=== PATIENT | female | born 1950 | race Caucasian/White ===

== ENCOUNTER 2017-01-08 12:34 | Inpatient (IN) | payer MEDICARE, MEDICAID ==
[~2017-01-08] VITALS: Ht 160 cm; Wt 65.3 kg
--- NOTE | 2017-01-08 12:50 | NUR ---
Priscillater brent and is at the bedside for 1:1 observation.
[2017-01-08] MEDS ORDERED: NIFE30TA2 PO (13:16)
[2017-01-08] MEDS ORDERED: ALPR1TAB7 PO (13:16)
[2017-01-08] MEDS ORDERED: ASCO500T10 PO (13:16)
[2017-01-08] MEDS ORDERED: FLUT9.9S NS (13:16)
[2017-01-08] MEDS ORDERED: DOCU-25 PO (13:16)
[2017-01-08] MEDS ORDERED: ALBU2.5V38 IH (13:16)
[2017-01-08] MEDS ORDERED: CYAN10006 IM (13:16)
[2017-01-08] MEDS ORDERED: BUDE10.2 IH (13:16)
[2017-01-08] MEDS ORDERED: DOCU240C26 PO (13:16)
[2017-01-08] MEDS ORDERED: PANT40TA4 PO (13:16)
[2017-01-08] MEDS ORDERED: POLY17PO4 PO (13:16)
[2017-01-08] MEDS ORDERED: OXYC-128 PO (13:16)
[2017-01-08] MEDS ORDERED: ZINC220T PO (13:16)
[2017-01-08] MEDS ORDERED: CRAN3875 PO (13:16)
[2017-01-08] MEDS ORDERED: ERGO500047 PO (13:16)
[2017-01-08] MEDS ORDERED: MAGN400O4 PO (13:16)
[2017-01-08] MEDS ORDERED: FERR-58 PO (13:16)
[2017-01-08] MEDS ORDERED: MECL-102 PO (13:16)
[2017-01-08] MEDS ORDERED: NITR0.4T6 SL (13:16)
[2017-01-08] MEDS ORDERED: OXYC-162 PO (13:16)
[2017-01-08] MEDS ORDERED: ACET325T53 PO (13:16)
[2017-01-08] MEDS ORDERED: ZOLP5TAB7 PO (13:16)
--- NOTE | 2017-01-08 13:30 | NUR ---
Pt ate lunch , remains cooperative. Pt ambulated to restroom with assist but was unable to void for urine specimen.
[2017-01-08 14:22] LABS: CALCIUM 9.2 mg/dL (8.5-10.1); CARBON DIOXIDE 28 mmol/L (21-32); CHLORIDE 103 mmol/L (98-107); CREATININE 0.6 mg/dL (0.6-1.3); GFR 100 mL/min (>60); GLUCOSE 143 mg/dL (74-106); POTASSIUM 3.9 mmol/L (3.5-5.1); SODIUM SERUM 141 mmol/L (136-145); UREA NITROGEN, BLOOD 10 mg/dL (7-18)
[2017-01-08 14:23] LABS: BASOPHILS # (AUTO) 0.1 K/uL (0.0-0.2); BASOPHILS % (AUTO) 1.1 % (0.0-2.0); EOSINOPHILS # (AUTO) 0.1 K/uL (0.0-0.7); EOSINOPHILS % (AUTO) 1.5 % (0.0-7.0); HEMATOCRIT 38.6 % (37.0-47.0); HEMOGLOBIN 13.1 g/dL (12.0-16.0); LYMPHOCYTES # (AUTO) 1.6 K/uL (0.8-4.8); LYMPHOCYTES % (AUTO) 26.3 % (20.5-51.5); MEAN CORPUSCULAR HEMOGLOBIN 32.5 uug (27.0-31.0); MEAN CORPUSCULAR HGB CONC 34 g/dL (32.0-37.0); MEAN CORPUSCULAR VOLUME 95.8 fL (81.0-99.0); MONOCYTES # (AUTO) 0.4 K/uL (0.1-1.30); MONOCYTES % (AUTO) 6.6 % (0.0-11.0); NEUTROPHILS # (AUTO) 4.1 K/uL (1.8-8.9); NEUTROPHILS % (AUTO) 64.5 % (38.5-71.5); PLATELET COUNT (AUTO) 233 K/uL (150-450); RED BLOOD CELL COUNT(AUTO) 4.03 MIL/uL (4.20-5.40); WHITE BLOOD COUNT (AUTO) 6.3 K/uL (4.0-11.2)
[2017-01-08 14:27] LABS: TROPONIN I < 0.017 ng/mL (0.00-0.056)
[2017-01-08 14:31] LABS: ETHANOL < 3 MG/DL (0-0)
[2017-01-08 14:32] LABS: AMMONIA 20 umol/L (11-32)
[2017-01-08 14:34] LABS: THYROID STIMULATING HORMONE 5.965 mIU/mL (0.358-3.740)
[2017-01-08 14:42] LABS: ACETAMINOPHEN 2.5 ug/mL (10-30); ALANINE AMINOTRANSFERASE 64 U/L (14-59); ALBUMIN 4.1 g/dL (3.4-5.0); ALKALINE PHOSPHATASE 171 U/L (50-136); ASPARTATE AMINOTRANSFERASE 43 U/L (15-37); BILIRUBIN,DIRECT 0.1 mg/dL (0.0-0.2); BILIRUBIN,TOTAL 0.5 mg/dL (0.2-1.0); TOTAL PROTEIN, SERUM 7.9 g/dL (6.4-8.2)
[2017-01-08 14:46] LABS: LACTIC ACID 1.3 mmol/L (0.4-2.0)
--- NOTE | 2017-01-08 14:48 | NUR ---
Urine specimen obtained and sent to lab, sitter remains at bedside, pending admission to MHU post change of shift.
[2017-01-08 15:06] LABS: *BILIRUBIN,URIN NEGATIVE (NEGATIVE); *BLOOD, URINE NEGATIVE (NEGATIVE); *CLARITY,URINE CLEAR (CLEAR); *COLOR,URINE YELLOW (YELLOW); *KETONES,URINE NEGATIVE (NEGATIVE); *PROTEIN,URINE NEGATIVE (NEGATIVE); *UROBILINOGEN,URINE 0.2 E.U./dl (NORMAL); LEUKOCYTE ESTERASE ,URINE NEGATIVE (NEGATIVE); NITRITE, URINE NEGATIVE (NEGATIVE); PH,URINE 8.5 (5.0-8.0); UGLUCOSE NEGATIVE (NEGATIVE)
[2017-01-08 15:23] LABS: BACTERIA,URINE RARE /HPF (NONE SEEN); RBC,URINE 0-3 /HPF (0-3); SQUAMOUS EPITHELIAL CELL,UR FEW /HPF (NONE SEEN)
[2017-01-08] MEDS ORDERED: OXYCODONE/APAP 5-325 MG TABLET PO ONE (17:00)
[2017-01-08] MEDS ORDERED: OXYCODONE/APAP 5-325 MG TABLET ONE ×2 (17:06→22:28)
--- NOTE | 2017-01-08 19:49 | NUR ---
Pt. admitted to GPS, under care of Dr. Kuhn Belongs List completed
[2017-01-08 20:00] VITALS: BP 119/79
[2017-01-08] MEDS ORDERED: ACETAMINOPHEN 325 MG TABLET PO PRN (20:15)
[2017-01-08] MEDS ORDERED: MAG HYDROX/AL HYDROX/SIMETH 30 ML LIQUID UDC PO PRN (20:15)
[2017-01-08] MEDS ORDERED: NITROGLYCERIN 0.4 MG/TAB BOTTLE SL PRN (21:45)
[2017-01-08] MEDS ORDERED: MECLIZINE HCL 25 MG TABLET PO PRN (21:45)
[2017-01-08] MEDS: ZOLPIDEM 5 MG TABLET PO PRN (22:19)
[2017-01-08] MEDS: OXYCODONE/APAP 5-325 MG TABLET PO PRN (22:20)
[2017-01-08] MEDS ORDERED: ZOLPIDEM 5 MG TABLET ONE (22:24)
[2017-01-08] MEDS: LORAZEPAM 0.5 MG TABLET PO PRN (23:37)
[2017-01-08] MEDS ORDERED: LORAZEPAM 0.5 MG TABLET ONE (23:46)
[2017-01-09] MEDS: MAGNESIUM HYDROXIDE 30 ML LIQUID UDC PO PRN (02:42)
[2017-01-09] MEDS ORDERED: MAGNESIUM HYDROXIDE 30 ML LIQUID UDC ONE (02:50)
--- NOTE | 2017-01-09 03:49 | NUR ---
Received patient from ER on 5150 hold, see chart for details. Patient is a/0 x4, denies chest pain or shortness of breath. medications reviewed with patient. Saline lock in place, states she has been on IV antibiotics for UTI. Psych and Internal MD notified of patient arrival to unit, medication orders placed and carried out. Belongings done with patient, oriented to unit and plan of care. Needs attended to. Will monitor.
[2017-01-09] MEDS: OXYCODONE/APAP 5-325 MG TABLET PO PRN ×3 (04:12→16:39)
[2017-01-09] MEDS ORDERED: OXYCODONE/APAP 5-325 MG TABLET ONE (04:19)
[2017-01-09 07:30] VITALS: BP 125/90
[2017-01-09] MEDS: ZINC SULFATE 220 MG CAPSULE PO SCH (09:00)
[2017-01-09] MEDS: NIFEdipine XL 30 MG TABSR PO SCH (09:00)
[2017-01-09] MEDS: ASCORBIC ACID 500 MG TABLET PO SCH (09:01)
[2017-01-09] MEDS: FERROUS SULFATE 325 MG TABEC PO SCH (09:01)
[2017-01-09] MEDS: DOCUSATE SODIUM 100 MG CAPSULE PO SCH ×2 (09:01→16:39)
[2017-01-09] MEDS: MIRALAX 17 GM POWD.PACK PO SCH ×2 (09:04→16:39)
[2017-01-09] MEDS: PANTOPRAZOLE SODIUM 40 MG TABLET.DR PO SCH (10:31)
[2017-01-09] MEDS: LORAZEPAM 0.5 MG TABLET PO PRN ×2 (12:28→20:38)
[2017-01-09] MEDS: ALBUTEROL SULFATE 2.5 MG/3 ML NEBU IH PRN ×2 (14:02→20:07)
[2017-01-09 15:30] VITALS: BP 128/85
[2017-01-09 18:09] LABS: *BILIRUBIN,URIN NEGATIVE (NEGATIVE); *BLOOD, URINE 1+ (NEGATIVE); *CLARITY,URINE SLIGHTLY CLOUDY (CLEAR); *COLOR,URINE YELLOW (YELLOW); *KETONES,URINE NEGATIVE (NEGATIVE); *PROTEIN,URINE NEGATIVE (NEGATIVE); *UROBILINOGEN,URINE 0.2 E.U./dl (NORMAL); LEUKOCYTE ESTERASE ,URINE 3+ (NEGATIVE); NITRITE, URINE NEGATIVE (NEGATIVE); PH,URINE 7.5 (5.0-8.0); UGLUCOSE NEGATIVE (NEGATIVE)
[2017-01-09 18:29] LABS: BACTERIA,URINE FEW /HPF (NONE SEEN); SQUAMOUS EPITHELIAL CELL,UR FEW /HPF (NONE SEEN); WBC,URINE 20-50 /HPF (0-3)
[2017-01-09 19:45] VITALS: BP 131/80
[2017-01-09] MEDS: QUETIAPINE FUMARATE 25 MG TABLET PO SCH (20:37)
--- NOTE | 2017-01-09 20:40 | NUR ---
gps: patient c/o anxiety. ativan 0.5 mg po given per patient requested.
[2017-01-09] MEDS: FLUTICASONE PROP NASAL SPRAY 16 GM BOTTLE NS SCH (20:51)
--- NOTE | 2017-01-09 21:40 | NUR ---
GPS: PATIENT IS CALM NOW. PRN EFFECTIVE FOR ANXIETY.
[2017-01-10] MEDS: ZOLPIDEM 5 MG TABLET PO PRN (01:43)
--- NOTE | 2017-01-10 01:45 | NUR ---
GPS: PATIENT C/O INSOMNIA. AMBIEN 5 MG PO GIVEN.
[2017-01-10] MEDS: OXYCODONE/APAP 5-325 MG TABLET PO PRN ×4 (02:40→22:03)
--- NOTE | 2017-01-10 02:43 | NUR ---
GPS: PATIENT C/O PAIN. PERCOCET 5/325 MG 1 TAB PO GIVEN PER PATIENT REQUESTED.
--- NOTE | 2017-01-10 03:43 | NUR ---
GPS: PATIENT STATED I AM FEELING BETTER NOW. PRN EFFECTIVE FOR PAIN.
[2017-01-10] MEDS: PANTOPRAZOLE SODIUM 40 MG TABLET.DR PO SCH (06:29)
--- NOTE | 2017-01-10 06:46 | NUR ---
GPS: REMAIN CALM AND COOPERATIVE WITH MEDS AND CARE. PATIENT IS NEEDY.SLEPT 9:30 HRS THROUGH THE NIGHT.
--- NOTE | 2017-01-10 06:59 | NUR ---
GPS: PATIENT IS NPO TO DAY FOR CT SCAN WITHOUT CONTRAST.
[2017-01-10] MEDS ORDERED: BARIUM SULFATE 450 ML ORAL.SUSP ONE (07:16)
[2017-01-10 07:30] VITALS: BP 126/76
[2017-01-10] MEDS: ALBUTEROL SULFATE 2.5 MG/3 ML NEBU IH PRN ×3 (08:38→21:14)
--- NOTE | 2017-01-10 08:44 | NUR ---
Pt received on w/c at nurses station, making frequent excessive demands. Needy, manipulative, med-seeking, and demanding. Makes excessive demands and never appears to be satisfied. When limit setting provided, pt states "I'm gonna clarisse you guys." Stated her coffee was cold. It was not, but offered another cup of fresh hot coffee. Pt then went to another nurse and asked him for another cup of coffee because her cup was cold and nobody gave her another cup. Requires frequent redirection and limit setting. Continues to refuse to remove heplock on right arm. Refused scheduled CT because "my software project manager will do it on Tuesday." Initially refused CT scan with contrast because she states she is allergic to IV dye.
[2017-01-10] MEDS: DOCUSATE SODIUM 100 MG CAPSULE PO SCH ×2 (08:47→17:40)
[2017-01-10] MEDS: NIFEdipine XL 30 MG TABSR PO SCH (08:47)
[2017-01-10] MEDS: MIRALAX 17 GM POWD.PACK PO SCH ×2 (08:47→17:40)
[2017-01-10] MEDS: FERROUS SULFATE 325 MG TABEC PO SCH (08:47)
[2017-01-10] MEDS: ZINC SULFATE 220 MG CAPSULE PO SCH (08:47)
[2017-01-10] MEDS: ASCORBIC ACID 500 MG TABLET PO SCH (08:47)
[2017-01-10] MEDS: LORAZEPAM 0.5 MG TABLET PO PRN ×3 (09:04→23:02)
[2017-01-10] MEDS: FLUTICASONE PROP NASAL SPRAY 16 GM BOTTLE NS SCH ×2 (09:08→20:20)
--- NOTE | 2017-01-10 14:56 | NUR ---
Initial discharge instructions:Patient resides at [facility] [[address],[place],[address];[phone]].Per patient,she would like to return back the facility once discharged.Spoke with Franky [NADIA] in admissions who stated the patient may not return back.Per Franky,the pt has become disruptive to other residents and is a danger.Per Franky,the pt's MD is recommending a Psychiatric Locked SNF for the patient instead.Additionally,Benedicto from [facility] contacted this reported to confirm if the patient will be returning to SNF or her housing once discharged.SHA will speak with patient,brother,and MD regarding appropriate discharge plans.SW will form a safe and proper discharge.
[2017-01-10] MEDS: MAGNESIUM HYDROXIDE 30 ML LIQUID UDC PO PRN (15:26)
[2017-01-10 15:55] VITALS: BP 118/82
[2017-01-10] MEDS: SULFAMETH/TRIMETH 800/160 MG TABLET PO SCH (20:21)
[2017-01-10] MEDS: QUETIAPINE FUMARATE 25 MG TABLET PO SCH (20:35)
[2017-01-10 20:48] VITALS: BP 117/78
--- NOTE | 2017-01-10 22:00 | NUR ---
received to care, visible on unit, pleasant, but very focused on her medications, for pain and anxiety. compliant with medications and staff direction. no aggressive behavior noted. as of 2199, she remains awake, in bed. no distress noted. assisted as needed..
--- NOTE | 2017-01-10 23:02 | NUR ---
PRN precocet given at 2202, for lower back pain 05/19. as of 2301, she states good relief (01/17), but remains anxious, so PRN ativan was given at this time. remains in bed. will continue to monitor closely.
--- NOTE | 2017-01-10 23:58 | NUR ---
appears to be asleep. no distress noted.
[2017-01-11] MEDS: ZOLPIDEM 5 MG TABLET PO PRN ×2 (00:32→21:44)
--- NOTE | 2017-01-11 00:32 | NUR ---
pt is now awake. PRN yady was given for insomnia, and she went back to bed.
[2017-01-11] MEDS: QUETIAPINE FUMARATE 25 MG TABLET PO PRN ×2 (01:45→21:44)
--- NOTE | 2017-01-11 01:45 | NUR ---
PT IS AWAKE. C/O ANXIETY. PRN SEROQUEL WAS GIVEN, AND SHE WENT BACK TO BED.
[2017-01-11] MEDS: OXYCODONE/APAP 5-325 MG TABLET PO PRN ×3 (04:08→20:26)
--- NOTE | 2017-01-11 06:00 | NUR ---
slept 4 hours
[2017-01-11] MEDS: PANTOPRAZOLE SODIUM 40 MG TABLET.DR PO SCH (06:39)
[2017-01-11] MEDS: LORAZEPAM 0.5 MG TABLET PO PRN ×4 (06:57→20:31)
--- NOTE | 2017-01-11 06:57 | NUR ---
PRN ativan given for anxiety
[2017-01-11 07:30] VITALS: BP_SYST 110; BP_SYST 134; BP_DIAS 68; BP_DIAS 82
[2017-01-11] MEDS: ASCORBIC ACID 500 MG TABLET PO SCH (08:28)
[2017-01-11] MEDS: NIFEdipine XL 30 MG TABSR PO SCH (08:28)
[2017-01-11] MEDS: SULFAMETH/TRIMETH 800/160 MG TABLET PO SCH ×3 (08:28→21:00)
[2017-01-11] MEDS: FERROUS SULFATE 325 MG TABEC PO SCH (08:28)
[2017-01-11] MEDS: DOCUSATE SODIUM 100 MG CAPSULE PO SCH ×2 (08:28→16:53)
[2017-01-11] MEDS: ZINC SULFATE 220 MG CAPSULE PO SCH (08:28)
[2017-01-11] MEDS: MIRALAX 17 GM POWD.PACK PO SCH ×2 (08:29→16:52)
[2017-01-11] MEDS: FLUTICASONE PROP NASAL SPRAY 16 GM BOTTLE NS SCH ×2 (08:29→21:13)
[2017-01-11] MEDS: ALBUTEROL SULFATE 2.5 MG/3 ML NEBU IH PRN ×2 (12:03→20:08)
[2017-01-11] MEDS: MAGNESIUM HYDROXIDE 30 ML LIQUID UDC PO PRN (13:45)
[2017-01-11 16:54] VITALS: BP 109/71
[2017-01-11 20:00] VITALS: BP 108/74
[2017-01-11] MEDS: QUETIAPINE FUMARATE 25 MG TABLET PO SCH (20:09)
[2017-01-12] MEDS: OXYCODONE/APAP 5-325 MG TABLET PO PRN ×2 (02:39→09:31)
[2017-01-12] MEDS: LORAZEPAM 0.5 MG TABLET PO PRN ×2 (04:38→10:51)
[2017-01-12] MEDS: PANTOPRAZOLE SODIUM 40 MG TABLET.DR PO SCH (06:19)
[2017-01-12 07:30] VITALS: BP 102/61
[2017-01-12 09:00] VITALS: BP 102/61
[2017-01-12] MEDS: SULFAMETH/TRIMETH 800/160 MG TABLET PO SCH ×2 (09:00→09:37)
[2017-01-12] MEDS: NIFEdipine XL 30 MG TABSR PO SCH (09:00)
[2017-01-12] MEDS: MIRALAX 17 GM POWD.PACK PO SCH (09:00)
[2017-01-12] MEDS: DOCUSATE SODIUM 100 MG CAPSULE PO SCH (09:29)
[2017-01-12] MEDS: ASCORBIC ACID 500 MG TABLET PO SCH (09:29)
[2017-01-12] MEDS: FERROUS SULFATE 325 MG TABEC PO SCH (09:30)
[2017-01-12] MEDS: ZINC SULFATE 220 MG CAPSULE PO SCH (09:37)
[2017-01-12] MEDS: FLUTICASONE PROP NASAL SPRAY 16 GM BOTTLE NS SCH (09:39)
--- NOTE | 2017-01-12 11:02 | NUR ---
DC Note: The patient will be discharged today back to her apartment [[address], [place], [address]] via taxi at 1:00 pm. Patient will be provided with a taxi voucher. Spoke with Stacia the inbound sales manager for [facility] who stated the patient may return home today. Stacia stated she would open the door for the patient once she arrives. Patient is aware and agreeable with discharge plans. Patient will follow-up with (Psychiatrist) [[address], [place] [address]; ] and Dr. Jarad Perez (Strike Operations Officer) [[address], [place] [address]; ]. Patient was provided with a brief substance abuse intervention and referred to [facility] , [facility] , and [facility] . Addendum: 01/12/17 at 1119 by HESHAM DALTON Patient refused a new SNF/Rehab placement [[facility]]. Addendum: 01/12/17 at 1353 by HESHAM DALTON Patient's brother, Max Russo [phone] was informed and is aware/agreeable with discharge plans.
[2017-01-12] MEDS ORDERED: ERGOCALCIFEROL 50,000 UNIT CAPSULE PO SCH (12:00)
--- NOTE | 2017-01-12 12:25 | NUR ---
WEEKLY MEETING; tolerating current diet(cardiac diet),and eating 100% of meals Anthropometry:Ht is 63",current wt is 144 lb,BMI 25.5-OVERWEIGHT weight discrepancy noticed 6lb wt loss in 4 days 4% significant ,nursing/winter intern recheck weight. labs:CHOLESTEROL-212,LDL-114 ON CARDIAC DIET NO NUTRITION DIAGNOSIS AT THIS TIME NO INTERVENTION AT THIS TIME Addendum: 01/12/17 at [address] Amended: Links added.
[2017-01-12] MEDS ORDERED: ALBUTEROL SULFATE 2.5 MG/3 ML NEBU NEB PRN (13:15)
[2017-01-12] MEDS ORDERED: ALBUTEROL SULFATE 8 GM HFA.AER.AD IH PRN (13:15)
--- NOTE | 2017-01-12 13:33 | NUR ---
GPS/RN- Spoke with [facility] medical group, Adia Gill N.P. and Dr Ellington, patient to follow up with her own PMD for Oxycodone PRN medication. patient informed.
--- NOTE | 2017-01-12 14:11 | NUR ---
Assistant Dean: SHA spoke with Leanne in Assistant Dean at [facility] [phone] regarding patient's belongings. Leanne was informed that the patient is planning to personally olive picker her items later today. Patient has refused for her items to be delivered to her apartment and will be picking them up personally. Per Leanne, she is aware and requested the patient call before she arrives in order to organize her items.
--- NOTE | 2017-01-12 14:31 | NUR ---
GPS/RN- PATIENT REFUSED TO SIGN FIREARMS FORM, VERBALIZING " I DID NOTHING WRONG". PATIENT REDIRECTED TO 72 HOUR HOLD INFORMATION, ARGUMENTATIVE, REFUSED TO SIGN.
--- NOTE | 2017-01-12 18:28 | NUR ---
PATIENT D/C D HOME WITH INSTRUCTIONS OF DISCHARGE PLAN AND APPOINTMENT SCHEDLE TO CALL FOR APPOINTMENT WITH IN 1 WEEK. PATIENT LEFT WITH ALL BELONGINGS AND MEDICATION PRESCRIPTIONS ABD EDUCATION OF HER DISEASE. PT LEFT IN NO ACUTE DISTRESS VIA CAB WITH VOUCHER , ESCORTED BY FEMALE STAFF TO LOBBY.
[2017-01-12] MEDS ORDERED: QUETIAPINE FUMARATE 25 MG TABLET PO SCH ×2 (21:00)
[2017-01-13] MEDS ORDERED: QUETIAPINE FUMARATE 25 MG TABLET PO SCH (09:00)
[2017-01-14] MEDS ORDERED: ERGOCALCIFEROL 50,000 UNIT CAPSULE PO SCH (09:00)
== END 2017-01-12 15:00 | disposition home or self-care (01) | DRG 885 ==
LOC: ER 12:34 → GPS 19:36
PROVIDERS: ADMIT Psychiatry & Neurology Psychosomatic Medicine; ATTEND Internal Medicine
DX: F29 Unspecified psychosis not due to a substance or known physiological condition (principal); F11.20 Opioid dependence, uncomplicated; D68.59 Other primary thrombophilia; N39.0 Urinary tract infection, site not specified; Z73.6 Limitation of activities due to disability; F41.9 Anxiety disorder, unspecified; B96.1 Klebsiella pneumoniae [K. pneumoniae] as the cause of diseases classified elsewhere; E78.5 Hyperlipidemia, unspecified; G89.4 Chronic pain syndrome; I10 Essential (primary) hypertension; J44.9 Chronic obstructive pulmonary disease, unspecified; J45.909 Unspecified asthma, uncomplicated; R74.0 Nonspecific elevation of levels of transaminase and lactic acid dehydrogenase [LDH]; R53.1 Weakness; M54.30 Sciatica, unspecified side; R73.9 Hyperglycemia, unspecified; M48.00 Spinal stenosis, site unspecified; N80.9 Endometriosis, unspecified; T37.0X5A Adverse effect of sulfonamides, initial encounter; Y92.230 Patient room in hospital as the place of occurrence of the external cause; F31.9 Bipolar disorder, unspecified
CPT/HCPCS: 36415; 70030-TC; 71010; 83605; 84443; 85025; 85730; 87040; 87077; 87086; 93005; 94640; 94664; 97001; 97110; 97116; 97530; A4663; G0480-TC; G6040-TC; J3535; J8597; Q9951

== ENCOUNTER 2020-07-31 11:25 | Inpatient (IN) | payer MEDICARE, OTHER ==
[~2020-07-31] VITALS: Ht 157.5 cm; Wt 49.0 kg
[~2020-07-31 11:25] MED LIST: ACET325T53 PO; ALBU2.5V38 IH; ASCO500T10 PO; BUDE10.2 IH; CRAN3875 PO; CYAN10006 IM; DOCU-141 PO; DOCU240C26 PO; ERGO500040 PO; FERR325T24 PO; FLUT9.9S NS; MAGN400O6 PO; MECL-159 PO; NIFE30TA2 PO; NITR0.4T48 SL; OXYC-128 PO; OXYC-162 PO; PANT40TA49 PO; POLY17PO4 PO; ZINC220T4 PO
--- NOTE | 2020-07-31 11:30 | NUR ---
Pt arrived via [facility]N ambulance on 515 hold from [facility]. Pt has already been medically cleared at sending facility per telephone report. Pt placed in room 2b, there are no MHU beds available at this time and no 1:1 sitter available.
[2020-07-31] MEDS ORDERED: ALPR1TAB7 PO (11:41)
[2020-07-31] MEDS ORDERED: ZOLP10TA2 PO (11:41)
--- NOTE | 2020-07-31 11:47 | NUR ---
PT IS RESTING IN BED COMFORTABLY. NO S/S OF ACUTE DISTRESS AT THIS TIME. CONTINUE TO MONITOR THE PT.
--- NOTE | 2020-07-31 11:47 | NUR ---
pt is in room #2b. dr martinez evaluated the pt.
[2020-07-31] MEDS ORDERED: OXYCODONE/APAP 5-325 MG TABLET ONE (12:05)
[2020-07-31] MEDS ORDERED: OXYCODONE/APAP 5-325 MG TABLET PO ONE (12:15)
--- NOTE | 2020-07-31 12:43 | NUR ---
REPORT WAS GIVEN TO RN MHU. PT WAS TRANSFERED TO ROOM #138A.
[2020-07-31 12:45] VITALS: BP 117/89
[2020-07-31] MEDS ORDERED: MAGNESIUM HYDROXIDE 30 ML LIQUID UDC PO PRN (12:45)
[2020-07-31] MEDS ORDERED: MAG HYDROX/AL HYDROX/SIMETH 30 ML LIQUID UDC PO PRN (12:45)
[2020-07-31] MEDS ORDERED: LORAZEPAM 0.5 MG TABLET PO PRN (12:45)
--- NOTE | 2020-07-31 12:50 | NUR ---
Gps/blow pit helper- Received report from Amrit FERRELL RN. Admitted from ER via wheel chair, alert, oriented x3, anxious, needy, oriented to unit settings. Patient denies arguments with her neighbor, claimed it was all misunderstanding., " i done want to hurt anybody". Patient requesting a wheel chair to use, claimed limited mobility r/t to hx of chronic back pain . patient received percocet 2 tabs. po in the ER , verbalized minimal results. Patient was taken to shower, ambulated to her room , w/o any difficulty noted. Refused to provide customer contact representative .Safety reviewed ,emphasized.
[2020-07-31] MEDS ORDERED: BLOOD SUGAR DIAGNOSTIC 1 EACH STRIP VI ONE (13:00)
--- NOTE | 2020-07-31 13:12 | NUR ---
Firearms Report DOJ: Insurance Verifier completed and submitted a [employer] firearms report for 5150 grave disability certification. A copy of report has been placed in patient chart.
--- NOTE | 2020-07-31 13:25 | NUR ---
SHA Initial Discharge Note: Patient currently resides [place] home [address], [place] with her boyfriend, did not provide information. Patient's brother, Max Russo ([phone]) is involved in her care. Patient would like to return home upon discharge. SHA will continue to work with patient, family, and MD to ensure a safe and proper discharge plan.
--- NOTE | 2020-07-31 13:26 | NUR ---
SHA Family Contact: SHA spoke with patient's brother, brother, Max Russo ([phone]) is involved in her care. Max stated that he will call this auto service writer back and provide patient's doctor's information and living arrangements.
--- NOTE | 2020-07-31 16:39 | NUR ---
Gps/Roustabout Crew Pusher-Per operational assistant Masha, she spoke to patient's caregiver, she will be coming tomorrow to oyster picker all her valuables /belongings , will keep in the pt's locker, and wallet and keys in the safe.
[2020-07-31] MEDS ORDERED: PANT40TA2 PO (16:53)
[2020-07-31] MEDS ORDERED: POLY17PO4 PO (16:53)
[2020-07-31] MEDS ORDERED: FLUT1DIS27 INH (16:53)
[2020-07-31] MEDS ORDERED: OXYC-128 PO (16:53)
[2020-07-31] MEDS ORDERED: DOCU-141 PO (16:53)
--- NOTE | 2020-07-31 16:55 | NUR ---
Spoke with patient's travel clerk on the outside, dr. Swan ([phone]). the office confirmed that the patient is taking Ambien 10 mg at night and Percocet 5/325 bid prn for pain, and Xanax 1 mg every 6 hours. the office also confirmed that the patient is med seeking and frequently calls the office asking for more medications.
[2020-07-31] MEDS: ACETAMINOPHEN 325 MG TABLET PO PRN (18:46)
[2020-07-31 20:00] VITALS: BP 124/76
[2020-07-31] MEDS: ZOLPIDEM 5 MG TABLET PO PRN (21:59)
[2020-08-01] MEDS: LORAZEPAM 0.5 MG TABLET PO PRN ×3 (00:13→11:19)
[2020-08-01] MEDS: ACETAMINOPHEN 325 MG TABLET PO PRN (00:45)
[2020-08-01] MEDS: OXYCODONE/APAP 5-325 MG TABLET PO PRN ×2 (02:52→13:02)
[2020-08-01] MEDS: PANTOPRAZOLE SODIUM 40 MG TABLET.DR PO SCH (06:08)
--- NOTE | 2020-08-01 06:31 | NUR ---
Received patient up in a wheelchair at the nurses station asking for medications. First a sleeping pill, then Ativan, then Tylenol, then "pain pill" and first thing this am , patient wants more Ativan. This patient is watching the clock until next medication is due. Patient also requested the global technical writer to put her blankets on her each time she got out of bed. That was multiple times. Patient is medication seeking and manipulative. Patient denies having SI or HI . Patient wants to speak with the doctor today to get more medications ordered. When asked where the pain is, patient was vague and switched locations. Continuing to monitor pain, SI , and for safety.
[2020-08-01 07:30] VITALS: BP 128/83
[2020-08-01] MEDS: FLUTICASONE/VILANTEROL 1 EACH BLST.W.DEV INH SCH (08:53)
[2020-08-01] MEDS: DOCUSATE SODIUM 100 MG CAPSULE PO PRN (08:53)
[2020-08-01] MEDS: MIRALAX 17 GM POWD.PACK PO SCH (08:53)
--- NOTE | 2020-08-01 10:22 | NUR ---
SHA Ortiz Department Contact: This proposal manager writer contacted [facility] and spoke with deputy Teixeira ([phone]) who stated they will contact SHA back once he is able to gather more information for concerns of guns in pt's house. Address: [address], [place] [address].
[2020-08-01] MEDS: THIAMINE HCL 100 MG TABLET PO SCH ×2 (11:45→11:54)
[2020-08-01] MEDS: SERTRALINE HCL 50 MG TABLET PO SCH ×2 (12:35→12:42)
--- NOTE | 2020-08-01 12:48 | NUR ---
Gps/supervisor dry cleaning- Patient refused to take setraline claimed she's not depressed and wound not take it, kept asking when her percocet when it is due., when can she have her next ativan, anxious, encouraged participation in her group therapy .Complained of pain on her back back and generalized discomfort., requesting to take percocet now.
--- NOTE | 2020-08-01 13:05 | NUR ---
SW Substance Abuse Intervention: Patient was provided with a brief substance abuse intervention and provided resources: [facility] ([phone]), [facility] ([phone]), and [facility] ([phone]).
--- NOTE | 2020-08-01 13:17 | NUR ---
SHA Ortiz Department Contact: This junior copywriter followed up with [facility] and spoke with Mely Montoya ([phone]) they are still researching and will contact this junior copywriter once they have more information in regard to firearms. Address: [address], [place] [address].
--- NOTE | 2020-08-01 14:06 | NUR ---
SHA Ortiz Department Contact: This brief writer followed up with [facility] and spoke with Puneet ([phone]) who stated no weapons in the house.
--- NOTE | 2020-08-01 15:15 | NUR ---
Gps/jasmyn Ramirez(pt's .boyfriend/caregiver) came from [facility] to pick up attendant , keys, ceramic pipes, and metal pipes, and some parafernalias , $10.00 bill, and coins . wallet kept in the safe,. Black and white long sleeve shirts given to patient .
[2020-08-01 15:18] VITALS: BP 139/98
--- NOTE | 2020-08-01 15:50 | NUR ---
Gps/21 dealer- Participated with PSeanT. , complained of lower back pain, requesting ponother percocet, reminded pt. she's not due for pain med. Remains up on her wheel chair,, able to transferes self ind., seen patient walks to the nurses station to ask for simple needs.Safety, reviewed
[2020-08-01] MEDS: LORAZEPAM 1 MG TABLET PO PRN ×2 (16:41→22:41)
[2020-08-01 20:11] VITALS: BP 127/91
[2020-08-01] MEDS: ZOLPIDEM 5 MG TABLET PO PRN (21:18)
[2020-08-02] MEDS: OXYCODONE/APAP 5-325 MG TABLET PO PRN ×2 (01:24→07:52)
[2020-08-02] MEDS: LORAZEPAM 1 MG TABLET PO PRN ×3 (04:46→17:10)
[2020-08-02] MEDS: PANTOPRAZOLE SODIUM 40 MG TABLET.DR PO SCH (07:00)
[2020-08-02 07:30] VITALS: BP 110/86
[2020-08-02] MEDS: MULTIVITAMINS,THERAPEUTIC TABLET PO SCH (09:00)
[2020-08-02] MEDS: THIAMINE HCL 100 MG TABLET PO SCH (09:00)
[2020-08-02] MEDS: SERTRALINE HCL 50 MG TABLET PO SCH ×2 (09:00→14:07)
[2020-08-02] MEDS: MIRALAX 17 GM POWD.PACK PO SCH (09:34)
[2020-08-02] MEDS: ACETAMINOPHEN 325 MG TABLET PO PRN (09:34)
[2020-08-02] MEDS: FLUTICASONE/VILANTEROL 1 EACH BLST.W.DEV INH SCH (09:37)
--- NOTE | 2020-08-02 10:18 | NUR ---
PT NOTED TO BE QUITE NEEDY, ATTENTION SEEKING, AND MED SEEKING AT THIS TIME. FREQUENTLY AT NURSES STATION MAKING VARIOUS COMPLAINTS, DEMANDS, AND REQUESTS. WILL ASK FOR PERCOCET FREQUENTLY, EVEN WHEN INFORMED WHAT THE DOCTORS ORDERS ARE. QUITE MANIPULATIVE AT THIS TIME. STATES "IF YOU DON'T HELP ME WITH WHAT I WANT, I'M GONNA FALL AND BLAME YOU" TO THE SENIOR ELECTRICAL ENGINEER. REQUIRES EXTENSIVE REDIRECTION. WHEN NEEDS ARE MET, PT CONTINUES TO FIND OTHER DEMANDS. STATES DOCTOR HAS NEVER TALKED TO HER ABOUT GIVING HER MORE PAIN MEDICATION, WHEN DOCTOR TALKED TO HER AT THE NURSES STATION TODAY, WITNESSED BY [address] VENDOR. WILL CONTINUE TO MONITOR.
--- NOTE | 2020-08-02 13:59 | NUR ---
Patient noted to be very needy. patient is constantly at the nurses station requesting various things. Medication seeking behavior. Poor impulse control. Patient attempting to manipulate staff into preforming tasks for her that shes already been observed preforming without assistance. Will continue to monitor
--- NOTE | 2020-08-02 14:11 | NUR ---
Patient refused morning scheduled dose of Zoloft. Upon speaking with the Doctor, the patient decided to take her dose as ordered. Administered 1 dose of Zoloft per MD instruction. Will continue to monitor
[2020-08-02 15:55] VITALS: BP 106/69
[2020-08-02 20:00] VITALS: BP 124/89
[2020-08-03] MEDS: ZOLPIDEM 5 MG TABLET PO PRN ×2 (01:44→22:08)
[2020-08-03] MEDS: OXYCODONE/APAP 5-325 MG TABLET PO PRN (04:58)
--- NOTE | 2020-08-03 05:00 | NUR ---
Received patient last night wondering around the hallways, going in and out of other patients rooms, very confused. Patient would purposefully grab linens off her peers beds, then sit on the ground. Sometimes even claiming that " The staff pushed me". Many times the teletypewriter installer tried to redirect patient to their own room but it did not work. Patient does not know where she is or what is going on. Patient claimed to have a urine infection, but teletypewriter installer has been unable to obtain a sample so far, but will keep trying. Patient has slept 0 hours last night. Close monitoring and constant redirection provided. A shower was given to patient during the night. Besides being confused, patient has not had any behavioral issues this shift. Continuing to monitor for safety and reorient patient as needed.
[2020-08-03] MEDS: PANTOPRAZOLE SODIUM 40 MG TABLET.DR PO SCH (06:07)
[2020-08-03 07:30] VITALS: BP 109/80
[2020-08-03] MEDS: MULTIVITAMINS,THERAPEUTIC TABLET PO SCH ×2 (08:42→09:00)
[2020-08-03] MEDS: MIRALAX 17 GM POWD.PACK PO SCH (08:42)
[2020-08-03] MEDS: THIAMINE HCL 100 MG TABLET PO SCH ×2 (08:42→09:00)
[2020-08-03] MEDS: ACETAMINOPHEN 325 MG TABLET PO PRN ×2 (08:43→15:58)
[2020-08-03] MEDS: LORAZEPAM 1 MG TABLET PO PRN ×2 (08:43→20:57)
[2020-08-03] MEDS: FLUTICASONE/VILANTEROL 1 EACH BLST.W.DEV INH SCH (09:00)
[2020-08-03 16:00] VITALS: BP 120/84
--- NOTE | 2020-08-03 18:56 | NUR ---
Left patient wondering and talking through the hallways, demanding staff to remake her bed. During shift refusing some morning meds, see eMAR. vitals stable. no c/of pain.
[2020-08-03 20:00] VITALS: BP 97/70
[2020-08-04] MEDS: OXYCODONE/APAP 5-325 MG TABLET PO PRN ×3 (00:55→23:25)
[2020-08-04] MEDS: PANTOPRAZOLE SODIUM 40 MG TABLET.DR PO SCH (06:17)
[2020-08-04 07:30] VITALS: BP 96/68
[2020-08-04] MEDS: THIAMINE HCL 100 MG TABLET PO SCH ×2 (09:00→17:27)
[2020-08-04] MEDS: FLUTICASONE/VILANTEROL 1 EACH BLST.W.DEV INH SCH ×2 (09:00→09:34)
[2020-08-04] MEDS: MULTIVITAMINS,THERAPEUTIC TABLET PO SCH ×2 (09:00→17:26)
[2020-08-04] MEDS: ACETAMINOPHEN 325 MG TABLET PO PRN ×2 (09:04→17:08)
[2020-08-04] MEDS: MIRALAX 17 GM POWD.PACK PO SCH (09:04)
[2020-08-04] MEDS: SERTRALINE HCL 50 MG TABLET PO SCH (09:05)
--- NOTE | 2020-08-04 14:27 | NUR ---
GPS: Nursing Notes: Destructive Behavior to Self: Patient is awake and responding to her name, impaired judgment, constantly asking for narcotics, medication seeker, poor impulse control, manipulative behavior saying one thing to one staff and another thing to another staff, resistant to nursing care, stated "I am calling the police because that patient went into my room...", loud and pressured speech, constantly threatening staff, gets easily irritable when directed, ambulatory by self, but using w/c stating "I am using the wheelchair because I cannot walk..", many times coming to nursing station on her own feet, depressed mood and angry affect, unable to formulate a viable plan for self care, continue with treatment plan.
--- NOTE | 2020-08-04 14:38 | NUR ---
INDIVIDUAL INTERVENTION: Pt came to SW office and stated that nurse was refusing to give her Ativan, SW explained that her as needed medication was not due and pt became agitated stating that she can have it whenever she wanted. SW attempted to provide insight into her mental illness and pt refused to engage in conversation. Pt has substance abuse history and an intervention was provided. Pt is in denial about her substance use and is med seeking.
--- NOTE | 2020-08-04 14:55 | NUR ---
SHA Family Contact: SW contacted patient's brother, Max Russo ([phone]) and left a voicemail for callback.
[2020-08-04 15:21] VITALS: BP 109/73
[2020-08-04] MEDS: GLUCERNA SHAKE VANILLA 237 ML CAN PO SCH (16:24)
[2020-08-04] MEDS: LORAZEPAM 1 MG TABLET PO PRN (17:25)
[2020-08-04] MEDS: ZOLPIDEM 5 MG TABLET PO PRN (21:02)
[2020-08-04 21:22] VITALS: BP 127/81
--- NOTE | 2020-08-05 00:29 | NUR ---
RECEIVED PATIENT IN BED.LATER GOT UP AND CAME MEDICATION SEEKING. BECOMES EASILY IRRITABLE WHEN DEMANDS ARE NOT ANSWERED IMMEDIATELY OR WHEN TOLD MEDS ARE NOT DUE. NOTED NEEDY,AND ATTENTION SEEKING. MAKING VARIOUS COMPLAINTS, DEMANDS. REQUIRES EXTENSIVE REDIRECTION. VISUAL CHECKS MADE ON HER FOR SAFETY. WILL CONTINUE TO MONITOR.
[2020-08-05] MEDS: PANTOPRAZOLE SODIUM 40 MG TABLET.DR PO SCH (06:14)
--- NOTE | 2020-08-05 06:55 | NUR ---
SLEPT FOR 5:50HOURS.
[2020-08-05 07:30] VITALS: BP 112/76
[2020-08-05] MEDS: MIRALAX 17 GM POWD.PACK PO SCH (08:16)
[2020-08-05] MEDS: SERTRALINE HCL 50 MG TABLET PO SCH (08:16)
[2020-08-05] MEDS: MULTIVITAMINS,THERAPEUTIC TABLET PO SCH (08:16)
[2020-08-05] MEDS: THIAMINE HCL 100 MG TABLET PO SCH (08:16)
[2020-08-05] MEDS: FLUTICASONE/VILANTEROL 1 EACH BLST.W.DEV INH SCH (08:17)
[2020-08-05] MEDS: GLUCERNA SHAKE VANILLA 237 ML CAN PO SCH ×3 (08:17→16:09)
[2020-08-05] MEDS ORDERED: HYDROXYZINE PAMOATE 25 MG CAPSULE PO PRN (08:45)
[2020-08-05] MEDS: ACETAMINOPHEN 325 MG TABLET PO PRN (09:45)
--- NOTE | 2020-08-05 10:54 | NUR ---
GPS: Nursing Notes: Destructive Behavior to Self: Patient is awake and responding to her name, poor impulse control, argumentative, manipulative behavior, constantly asking for narcotics, saying one thing to staff and another thing to another staff, stating "The socia worker told that I can have my Ativan routinely..", "Yes, she got my order from the doctor...", redirected and setting limits during the shift, but patient gets angry, loud and starts threatening staff, narcotic seeking behavior, unable to formulate a viable plan for self care, believes that we are against her, overly intrusive constantly coming to the nursing station and blocking the door when redirected states that the staff is abusing her, continue with treatment plan.
--- NOTE | 2020-08-05 11:02 | NUR ---
patient approach the nursing station and verbalizes " i wanted to have a second opinion, i want to know why the doctor cut it in half, i disagree on that" patient confrontational, ask to wait for the doctor to to wait for the doctor to talk to her regarding her concern since ativan is a PRN , will follow up on this matter
[2020-08-05] MEDS: OXYCODONE/APAP 5-325 MG TABLET PO PRN ×2 (11:34→19:54)
--- NOTE | 2020-08-05 12:48 | NUR ---
GPS: Nursing Notes: Destructive Behavior to Self: Patient is awake and responding to her name, continue to constantly coming to the nursing station and asking for narcotics, threatening staff, accusing staff of not given her Miralax this am, explained to patient that she got all her medication this am, but continue to be accusatory toward staff, loud and pressured speech, "I am going to report you... I did not get my Miralax.. I want to speak to the fixer supervisor and the charge nurse... ", redirected and setting limits, but continue with manipulative behavior, disruptive by shouting near the nursing station, poor impulse control, unable to formulate a viable plan for self care, continue with treatment plan.
--- NOTE | 2020-08-05 13:10 | NUR ---
SHA PC Hearing: Patient had probable cause hearing today and it was upheld for Grave Disability.
--- NOTE | 2020-08-05 13:20 | NUR ---
SW NOTIFICATION TO MD: SW contacted MD and informed him of pts aggressive behavior. Pt is verbally aggressive, shouting, confrontational, argumentative, and continues to threaten staff when demanding to be given medication.
--- NOTE | 2020-08-05 13:45 | NUR ---
INDIVIDUAL INTERVENTION: SW attempted to provide intervention regarding pts med seeking and attempted to educated pt on PRN medication. Pt became verbally aggressive, argumentative, and confrontational. Pt stated that she wants to change her current psychiatrist and get a pill machine operator as current MD decreased pts Ativan. SW advised pt to discuses this with MD tomorrow.
[2020-08-05 16:00] VITALS: BP 134/81
[2020-08-05] MEDS: LORAZEPAM 1 MG TABLET PO PRN (16:29)
[2020-08-05 20:14] VITALS: BP 114/75
[2020-08-05] MEDS: ZOLPIDEM 5 MG TABLET PO PRN (21:55)
[2020-08-06] MEDS: LORAZEPAM 1 MG TABLET PO PRN ×3 (01:36→18:21)
[2020-08-06 04:57] LABS: *BILIRUBIN,URIN NEGATIVE (NEGATIVE); *BLOOD, URINE 1+ (NEGATIVE); *CLARITY,URINE SLIGHTLY CLOUDY (CLEAR); *COLOR,URINE YELLOW (YELLOW); *KETONES,URINE 2+ (NEGATIVE); *UROBILINOGEN,URINE 0.2 E.U./dl (NORMAL); LEUKOCYTE ESTERASE ,URINE 1+ (NEGATIVE); NITRITE, URINE POSITIVE (NEGATIVE); PH,URINE 6.5 (5.0-8.0); UGLUCOSE NEGATIVE (NEGATIVE)
--- NOTE | 2020-08-06 05:23 | NUR ---
Received patient up at the nurses station last night asking about when she can have her Percocet. This patient is watching the times on the clock and coming out of the room asking for all medications available. Patient c/o urine pain. UA was sent to the lab and results show a UTI. Strap Stitcher will notify the MD. Patient slept very little last night and continued to complain about her Doctors cutting back on her medications. Other than neediness, no behavior escalation noted at this time. Continuing to monitor for safety and to set limits. This patient can be very manipulative and often does not tell the truth.
[2020-08-06] MEDS: ACETAMINOPHEN 325 MG TABLET PO PRN ×2 (06:27→23:11)
[2020-08-06] MEDS: PANTOPRAZOLE SODIUM 40 MG TABLET.DR PO SCH (06:27)
[2020-08-06 07:30] VITALS: BP 120/88
[2020-08-06] MEDS: MIRALAX 17 GM POWD.PACK PO SCH (08:18)
[2020-08-06] MEDS: MULTIVITAMINS,THERAPEUTIC TABLET PO SCH (08:18)
[2020-08-06] MEDS: THIAMINE HCL 100 MG TABLET PO SCH (08:19)
[2020-08-06] MEDS: OXYCODONE/APAP 5-325 MG TABLET PO PRN ×2 (08:21→16:12)
[2020-08-06] MEDS: SERTRALINE HCL 50 MG TABLET PO SCH ×2 (08:28→09:08)
[2020-08-06] MEDS: GLUCERNA SHAKE VANILLA 237 ML CAN PO SCH ×3 (08:29→17:38)
--- NOTE | 2020-08-06 09:03 | NUR ---
spoke with Dr. James, asking me to call any available Psychiatrist since patient was asking for change of psychiatrist , called and spoke with Dr. Chi, Dr. Kuhn , and all refused to accept, patient aware
--- NOTE | 2020-08-06 09:06 | NUR ---
SHA Family Contact: SHA spoke with patient's brother, brother, Max Russo ([phone]) regarding pts discharge and treatment plan. SW informed brother that pt has a substance abuse dependence and is constantly asking for medications. Brother did not comment on pts substance use dependence and stated that pt will return home once discharged and confirmed that pt has a caregiver that will be available to receive pt at home once discharged. Brother requested SW contact him to confirm pts discharge.
[2020-08-06] MEDS: DOCUSATE SODIUM 100 MG CAPSULE PO PRN (09:07)
[2020-08-06] MEDS: FLUTICASONE/VILANTEROL 1 EACH BLST.W.DEV INH SCH (09:07)
[2020-08-06 11:56] LABS: RBC,URINE 0-3 /HPF (0-3)
[2020-08-06 11:57] LABS: BACTERIA,URINE MANY /HPF (NONE SEEN); CALCIUM OXALATE CRYSTALS,UR MODERATE /HPF (NONE SEEN); SQUAMOUS EPITHELIAL CELL,UR FEW /HPF (NONE SEEN)
[2020-08-06] MEDS: DOCUSATE SODIUM 100 MG CAPSULE PO SCH ×2 (12:26→20:22)
[2020-08-06] MEDS ORDERED: CEphaleXIN 250 MG CAPSULE PO SCH (14:00)
--- NOTE | 2020-08-06 14:14 | NUR ---
GROUP NOTE: SW encouraged pt to attend group therapy. Pt refused stating she needed to get her medication first.
[2020-08-06 16:00] VITALS: BP 111/77
--- NOTE | 2020-08-06 16:13 | NUR ---
Pt received, assessed, able to make needs known and CFS. Pt denies SI/HI, AH/VH. Pt is argumentative and displays staff splitting as an attempt to manipulate her situation. Pt states she is in 9/10 Percocet administered per PRN orders of BID. Pt teaching explained, alternative Pain alleviating remedies such as Tylenol offered to Pt but denied. All comfort and safety measures implemented. Will continue to monitor Pt for safety.
--- NOTE | 2020-08-06 17:18 | NUR ---
called and spoke with md, regarding ATB , patient aware of the Allergy , and will hold antibiotic until the culture result comesback , will continue monitor on patient symptoms and follow up on the culture result
--- NOTE | 2020-08-06 18:28 | NUR ---
Pt reported 9/10 pain, agreeing to take a shower following medication. Pt became argumentative following medication administration for pain, suddenly refusing to shower after complaining of not having been offered a shower, found to be untrue. Pt finally agreed to shower. Following shower Pt c/o wanting to put dirty shift back on stating "I was wearing it before, that is mine". After thoroughly searching, garment was not initialed and proved to be a donation item. Pt teaching provided on proper hygiene and hospital protocol on clothing documentation upon admission. Pt continued to argue with staff, attempting to split staff, changing her story again. Pt eventually able to be redirected and dressed in an alternative shirt.
--- NOTE | 2020-08-06 18:35 | NUR ---
PRN Ativan administered per PRN orders. Pt teaching provided. Pt remains hostile towards staff. All safety measures implemented.
[2020-08-06] MEDS: ZOLPIDEM 5 MG TABLET PO PRN (20:23)
[2020-08-06 20:29] VITALS: BP 107/82
--- NOTE | 2020-08-06 22:37 | NUR ---
Patient received in hallway up in her wheel chair. Patient was pleasant upon approach. However, patient is easily irritable and agitated is redirectable. Upon report was informed that patient was known to staff split. Patient complaint with medication. Patient denies pain at this time, will continue to monitor. Patient is able to make needs known. Safety measures noted, safe environment, frequent rounding, and clutter free environment. Bed in lowest position and bed alarm on while in bed.
[2020-08-07] MEDS: LORAZEPAM 1 MG TABLET PO PRN ×3 (02:30→21:05)
[2020-08-07] MEDS: PANTOPRAZOLE SODIUM 40 MG TABLET.DR PO SCH (06:19)
[2020-08-07 07:30] VITALS: BP 129/88
[2020-08-07] MEDS: OXYCODONE/APAP 5-325 MG TABLET PO PRN (08:00)
[2020-08-07] MEDS: MULTIVITAMINS,THERAPEUTIC TABLET PO SCH (08:55)
[2020-08-07] MEDS: DOCUSATE SODIUM 100 MG CAPSULE PO SCH ×2 (08:55→20:39)
[2020-08-07] MEDS: MIRALAX 17 GM POWD.PACK PO SCH (08:55)
[2020-08-07] MEDS: FLUTICASONE/VILANTEROL 1 EACH BLST.W.DEV INH SCH (08:55)
[2020-08-07] MEDS: GLUCERNA SHAKE VANILLA 237 ML CAN PO SCH ×3 (09:00→17:18)
[2020-08-07] MEDS: SERTRALINE HCL 50 MG TABLET PO SCH (09:07)
--- NOTE | 2020-08-07 09:20 | NUR ---
SHA APS NOTE: SHA received a call from Mare SANCHES case management social worker ([phone]) requesting discharge update on pt. SHA informed SHA that pt will be discharged home and there is no discharge date as of today.
[2020-08-07] MEDS: THIAMINE HCL 100 MG TABLET PO SCH (09:51)
--- NOTE | 2020-08-07 13:49 | NUR ---
SHA Family Contact: SHA spoke with patient's brother, Max Russo ([phone]) and informed him pt will be discharged on Tuesday08/09/20. Brother stated that he will be contacting caregiver so he can come pick pt up at 11am on Tuesday.
--- NOTE | 2020-08-07 14:18 | NUR ---
GROUP NOTE: SW encouraged pt to attend group therapy. Pt refused stating she wanted to sleep and asked SW to leave her alone.
[2020-08-07] MEDS: ACETAMINOPHEN 325 MG TABLET PO PRN (15:21)
--- NOTE | 2020-08-07 15:36 | NUR ---
Gps/Supply Service Worker- Received report from Alexi Roman, patient to be transfered to room 140-B.
[2020-08-07 16:00] VITALS: BP 113/73
[2020-08-07 20:00] VITALS: BP 100/67
[2020-08-07] MEDS: ZOLPIDEM 5 MG TABLET PO PRN (22:01)
[2020-08-08] MEDS: OXYCODONE/APAP 5-325 MG TABLET PO PRN ×2 (00:29→08:37)
[2020-08-08] MEDS: LORAZEPAM 1 MG TABLET PO PRN ×2 (05:29→21:54)
[2020-08-08] MEDS: PANTOPRAZOLE SODIUM 40 MG TABLET.DR PO SCH ×2 (06:45→13:03)
[2020-08-08 07:30] VITALS: BP 117/78
--- NOTE | 2020-08-08 09:24 | NUR ---
SHA Family Contact: SW spoke with patient's brother, Max Russo ([phone]) and left a voicemail informing him pt stated caregiver cannot pick her up and will be transported home via taxi.
--- NOTE | 2020-08-08 09:26 | NUR ---
SW DISCHARGE NOTE FOR Tuesday08/09/20: Pt will be discharged at 11:00am via Taxi home [address], [facility]. Patient's brother, Max Russo ([phone]) has been notified and agrees with discharge plan. Pts mood is anxious with congruent affect. Pt denied visual/auditory hallucinations and denies suicidal/homicidal ideation. Pt is wheelchair bound and appears disheveld and unkempt. Pt is alert and oriented x4. Pt will follow up with [facility] Address: [address], [place] [address] on 08/13/20 at 9:00am and will also follow up with Data Entry Operator: Dr. Swan [address] [facility] [address] [place] [address] on 08/15/20 at 2:00pm. Patient was referred to the [address] [address] / and was encouraged to present at 9:00am on Tuesday08/11/20. Additional resources included [facility] [address] [place] [address] and [facility] [address] [place] [address] . The multidisciplinary exit care form was done, printed, signed, and given to the patient.
[2020-08-08] MEDS: DOCUSATE SODIUM 100 MG CAPSULE PO SCH ×2 (09:36→20:34)
[2020-08-08] MEDS: SERTRALINE HCL 50 MG TABLET PO SCH (09:36)
[2020-08-08] MEDS: MIRALAX 17 GM POWD.PACK PO SCH (09:37)
[2020-08-08] MEDS: THIAMINE HCL 100 MG TABLET PO SCH (09:37)
[2020-08-08] MEDS: MULTIVITAMINS,THERAPEUTIC TABLET PO SCH (09:37)
[2020-08-08] MEDS: FLUTICASONE/VILANTEROL 1 EACH BLST.W.DEV INH SCH (09:38)
[2020-08-08] MEDS: GLUCERNA SHAKE VANILLA 237 ML CAN PO SCH ×3 (09:38→16:55)
[2020-08-08] MEDS: ACETAMINOPHEN 325 MG TABLET PO PRN (13:02)
[2020-08-08 16:00] VITALS: BP 129/73
[2020-08-08 20:38] VITALS: BP 106/66
[2020-08-08] MEDS: ZOLPIDEM 5 MG TABLET PO PRN (21:10)
--- NOTE | 2020-08-08 21:58 | NUR ---
patient c/o anxiety. ativan 0.5 mg po given.
--- NOTE | 2020-08-08 22:53 | NUR ---
GPS: PATIENT CALM AT THIS TIME. PRN EFFECTIVE FOR ANXIETY.
[2020-08-09] MEDS: OXYCODONE/APAP 5-325 MG TABLET PO PRN (03:13)
--- NOTE | 2020-08-09 06:55 | NUR ---
REMAIN NEEDY MOST OF THE NIGHT. SLEPT 4 HRS THROUGH THE NIGHT. CONTINUE PLAN OF CARE.
[2020-08-09] MEDS: PANTOPRAZOLE SODIUM 40 MG TABLET.DR PO SCH (07:00)
[2020-08-09 07:30] VITALS: BP 111/71
[2020-08-09] MEDS: MIRALAX 17 GM POWD.PACK PO SCH (08:48)
[2020-08-09] MEDS: SERTRALINE HCL 50 MG TABLET PO SCH (08:49)
[2020-08-09] MEDS: MULTIVITAMINS,THERAPEUTIC TABLET PO SCH (08:49)
[2020-08-09] MEDS: FLUTICASONE/VILANTEROL 1 EACH BLST.W.DEV INH SCH (08:49)
[2020-08-09] MEDS: THIAMINE HCL 100 MG TABLET PO SCH (08:49)
[2020-08-09] MEDS: DOCUSATE SODIUM 100 MG CAPSULE PO SCH (08:49)
[2020-08-09] MEDS: GLUCERNA SHAKE VANILLA 237 ML CAN PO SCH (08:50)
--- NOTE | 2020-08-09 10:58 | NUR ---
GPS: Nursing Notes: Discharge Notes: Patient is awake and responding to her name, cooperative with nursing care, compliant with her medications, following staff directions, A/Ox4, denies any SI/HI, denies any AH/VH, denies any pain or discomfort at this time, denies SOB, discharge home at [address], [place], [place]. Her brother - Max Russo has been notified by oncology social work. Patient took all her belongings with her, instructions and prescriptions given to patient. transported home via [employer]. Pt will follow up with [facility] Address: [address], [place] [address] on 08/13/20 at 9:00am and will also follow up with Iron Guardrail Installer: Dr. Swan [id number] [facility] [address] [place] [address] on 08/15/20 at 2:00pm. Patient was referred to the [address] [address] / and was encouraged to present at 9:00am on Tuesday08/11/20. Additional resources included [facility] [address] [place] [address] and [facility] [address] [place] [address] .
== END 2020-08-09 11:00 | disposition home or self-care (01) | DRG 880 ==
LOC: ER 11:25 → GPS 12:19
PROVIDERS: ADMIT Psychiatry & Neurology Psychiatry; ATTEND Family Medicine
DX: F41.1 Generalized anxiety disorder (principal); N39.0 Urinary tract infection, site not specified; K21.9 Gastro-esophageal reflux disease without esophagitis; G89.4 Chronic pain syndrome; E11.9 Type 2 diabetes mellitus without complications; Z79.899 Other long term (current) drug therapy; J44.9 Chronic obstructive pulmonary disease, unspecified; F32.9 Major depressive disorder, single episode, unspecified; Z87.440 Personal history of urinary (tract) infections; Z88.0 Allergy status to penicillin; Z73.6 Limitation of activities due to disability; R42 Dizziness and giddiness; R53.1 Weakness; B96.20 Unspecified Escherichia coli [E. coli] as the cause of diseases classified elsewhere; F10.129 Alcohol abuse with intoxication, unspecified; M48.00 Spinal stenosis, site unspecified; Y90.9 Presence of alcohol in blood, level not specified
CPT/HCPCS: 36415; 87077; 87086; 93005; A4663

== ENCOUNTER 2021-12-27 07:51 | Emergency (ER) | payer MEDICARE, OTHER ==
[~2021-12-27] VITALS: Ht 157.5 cm; Wt 54.4 kg
[~2021-12-27 07:51] MED LIST changes: -ACET325T53 PO; -ALBU2.5V38 IH; +ALPR1TAB7 PO; -ASCO500T10 PO; -BUDE10.2 IH; -CRAN3875 PO; -CYAN10006 IM; -DOCU240C26 PO; -ERGO500040 PO; -FERR325T24 PO; +FLUT1DIS27 INH; -FLUT9.9S NS; -MAGN400O6 PO; -MECL-159 PO; -NIFE30TA2 PO; -NITR0.4T48 SL; -OXYC-162 PO; +PANT40TA2 PO; -PANT40TA49 PO; -ZINC220T4 PO; +ZOLP10TA2 PO
--- NOTE | 2021-12-27 08:10 | NUR ---
PT IS IN ROOM #2A. DR WADE EVALUATED THE PT.
[2021-12-27] MEDS ORDERED: NALO25TA4 PO (08:16)
[2021-12-27] MEDS ORDERED: OXYC-133 PO (08:16)
[2021-12-27] MEDS ORDERED: MIRALAX 17 GM POWD.PACK PO ONE (09:00)
[2021-12-27] MEDS ORDERED: MIRALAX 17 GM POWD.PACK ONE (09:06)
[2021-12-27] MEDS ORDERED: ALPRAZOLAM 0.25 MG TABLET PO ONE ×2 (09:15→14:00)
[2021-12-27] MEDS ORDERED: ALPRAZOLAM 0.5 MG TABLET ONE ×2 (09:34→14:15)
[2021-12-27] MEDS ORDERED: OXYCODONE/APAP 5-325 MG TABLET PO ONE (10:15)
[2021-12-27] MEDS ORDERED: HYDROCODONE/APAP 5-325MG TABLET ONE (10:18)
[2021-12-27] MEDS ORDERED: HYDROCODONE/APAP 5-325MG TABLET PO ONE (11:45)
--- NOTE | 2021-12-27 14:31 | NUR ---
PT WAS EVALUATED BY DR WADE AND BY CRISIS JOB BOSS CRISTHIAN. PT'S 51/50 HOLD WAS REMOVED BY CRISIS JOB BOSS CRISTHIAN. PT WAS TRANSFERED BACK TO HER NURSING FACILITY [facility]. REPORT WAS GIVEN TO AMBULANCE EMT AND TO [facility]P ENDLESS TRACK VEHICLE MECHANIC.
[2021-12-27] MEDS ORDERED: ACETAMINOPHEN ES 500 MG TABLET ONE (14:50)
[2021-12-27] MEDS ORDERED: ACETAMINOPHEN ES 500 MG TABLET PO ONE (15:15)
[2021-12-27 15:17] VITALS: BP 128/78
== END 2021-12-27 15:22 ==
LOC: ER 07:55
DX: F32.A Depression, unspecified (principal); Z82.49 Family history of ischemic heart disease and other diseases of the circulatory system; F41.9 Anxiety disorder, unspecified; S42.292D Other displaced fracture of upper end of left humerus, subsequent encounter for fracture with routine healing; X58.XXXD Exposure to other specified factors, subsequent encounter; Z90.710 Acquired absence of both cervix and uterus; J44.9 Chronic obstructive pulmonary disease, unspecified; K21.9 Gastro-esophageal reflux disease without esophagitis; G89.4 Chronic pain syndrome; E11.9 Type 2 diabetes mellitus without complications; Z88.1 Allergy status to other antibiotic agents; F17.200 Nicotine dependence, unspecified, uncomplicated; F10.10 Alcohol abuse, uncomplicated
CPT/HCPCS: 93005; A4663; A9150